=== PATIENT | male | born 1970 | race American Indian/Alaskan Native ===

== ENCOUNTER 2018-04-05 18:22 | Emergency (ER) | payer MEDICARE ==
[2018-04-05 18:29] VITALS: BP 133/87
[2018-04-05] MEDS ORDERED: NORCO 5/325 PO STA (20:54)
--- NOTE | 2018-04-05 21:55 | XRay Report ---
FINAL REPORT EXAM: XR ELBOW 3+V LT HISTORY: fall on ground and hit elbow TECHNIQUE: Three views of the left elbow PRIORS: None. FINDINGS: The bones are normally aligned and mineralized. The joint spaces are well-preserved. There is no evid ence of acute fracture. There is an olecranon spur. There is osteophyte formation of the coronoid pro cess. IMPRESSION: No evidence of acute fracture or subluxation.
--- NOTE | 2018-04-05 22:34 | Emergency Department Report ---
Upper Extremity - HPI Chief Complaint: Fall Stated Complaint: FELL AND HIT (L) ELBOW Time Seen by Provider: 04/05/18 20:38 Upper Extremity: Left Elbow Occurred When: 2 Days Mechanism: Fall (and hit floor with elbow) Severity: mild Symptoms: Yes Pain with Movement, Yes Swelling, No Limited Range of Movement, No Numbness, No Weakness, No Bruising/Ecchymosis, No Laceration or Abrasion ED Review of Systems ROS: Stated complaint: FELL AND HIT (L) ELBOW Other details as noted in HPI Constitutional: denies: chills, fever Eyes: denies: eye pain, eye discharge, vision change ENT: denies: ear pain, throat pain Respiratory: denies: cough, shortness of breath, wheezing Cardiovascular: denies: chest pain, palpitations Endocrine: no symptoms reported Gastrointestinal: denies: abdominal pain, nausea, diarrhea Genitourinary: denies: urgency, dysuria Musculoskeletal: denies: back pain, joint swelling, arthralgia Skin: denies: rash, lesions Neurological: denies: headache, weakness, paresthesias Psychiatric: denies: anxiety, depression Hematological/Lymphatic: denies: easy bleeding, easy bruising ED Past Medical Hx - Past Medical History Previous Medical History?: Yes Hx GERD: Yes Additional medical history: Brugada syndrome. MS - Surgical History Past Surgical History?: Yes Hx Internal Defibrillator: Yes (placed 01/11/15) Additional Surgical History: Cardiac cath 12/29/2014 normal coronary arteries - Social History Smoking Status: Never Smoker Substance Use Type: None - Medications Home Medications: Home Medications Medication Instructions Recorded Confirmed Last Taken Type Gabapentin [Neurontin] 800 mg PO Q8H 12/29/14 12/29/14 12/28/14 History Indomethacin 50 mg PO Q8H 12/29/14 12/29/14 12/28/14 History Omeprazole [PriLOSEC] 10 mg PO QDAY 12/29/14 12/29/14 09/16/15 History traZODone [Desyrel] 50 mg PO QHS 12/29/14 12/29/14 12/28/14 History Ibuprofen [Motrin 800 MG tab] 800 mg PO Q8HR PRN #30 tablet 01/18/15 Unknown Rx Ketorolac [Toradol] 10 mg PO Q6H PRN #20 tablet 04/05/18 Unknown Rx Upper Extremity Exam - Exam General: Vital signs noted. No distress. Alert and acting appropriately. Head and Torso: No HEENT Abnormality, No Neck Tenderness, No Chest/Lungs Abnormality, No Abdominal Tenderness, No Back Tenderness Shoulder Exam: Yes Normal Range of Motion in Shoulder, No Shoulder Tenderness, No Clavicle Tenderness, No Shoulder Deformity, No AC Joint Tenderness Arm Exam: No Arm/Humerus Tenderness, No Arm Deformity Elbow: Yes Elbow Tenderness, No Normal Range of Motion in Elbow, No Elbow Deformity Forearm: No Forearm Tenderness, No Forearm Deformity, No Pain with Pronation, No Pain with Supination Wrist: Yes Normal ROM in Wrist, No Wrist Tenderness, No Wrist Deformity, No Snuffbox Tenderness, No Pain with Axial Thumb Compression Hand: Yes Normal ROM in Digit(s), No Hand Tenderness, No Hand Deformity, No Digit Tenderness, No Digit(s) Deformity, No Tendon Dysfunction CMS Exam: No Broken Skin, No Normal Distal Pulses, No Normal Capillary Refill, N o Normal Distal Sensation ED Course Vital Signs 04/05/18 18:27 Temperature 97.8 F Pulse Rate 88 Respiratory 16 Rate Blood Pressure 133/87 O2 Sat by Pulse 97 Oximetry Critical care attestation.: If time is entered above; I have spent that time in minutes in the direct care of this critically ill patient, excluding procedure time. ED Disposition Clinical Impression: Contusion Disposition: DC-01 TO HOME OR SELFCARE Is pt being admited?: No Does the pt Need Aspirin: No Condition: Stable Instructions: Elbow Bursitis (ED), Arthralgia (ED) Prescriptions: Ketorolac [Toradol] 10 mg PO Q6H PRN #20 tablet PRN Reason: Pain Referrals: PRIMARY CARE [Primary Care Provider] - 3-5 Days [facility] [Provider Group] - 3-5 Days
== END 2018-04-05 22:38 | disposition home or self-care (01) ==
LOC: ED 18:22
DX: S50.02XA Contusion of left elbow, initial encounter (principal); K21.9 Gastro-esophageal reflux disease without esophagitis; W18.30XA Fall on same level, unspecified, initial encounter; Y93.89 Activity, other specified; Y92.89 Other specified places as the place of occurrence of the external cause; Y99.8 Other external cause status

== ENCOUNTER 2021-04-08 20:13 | Emergency (ER) | payer MEDICARE ==
[2021-04-08] MEDS ORDERED: SULFAMETHOXAZOLE/TRIMETHOPRIM 800/160MG DS TAB PO ONE (20:44)
[2021-04-08] MEDS ORDERED: HYDROcodone/ACETAMINOPHEN 5-325 MG TAB PO ONE (20:44)
[2021-04-08] MEDS ORDERED: TETANUS,DIPH,PERTUSS(ACELL) VACCINE 0.5 ML SYRINGE IM ONE (20:44)
[2021-04-08] MEDS ORDERED: IBUPROFEN 600 MG TAB PO ONE (20:44)
[2021-04-08] MEDS ORDERED: ONDANSETRON 4 MG ODT TAB PO ONE (20:45)
--- NOTE | 2021-04-08 21:30 | Emergency Department Report ---
ED General Adult HPI - General Chief complaint: Wound/Laceration Stated complaint: LEG INFECTION Source: patient Mode of arrival: Ambulatory Limitations: No Limitations - History of Present Illness Initial comments: Patient is a 51-year-old -Lithuanian male with a history of GERD and Brugada syndrome who presents to the ED with complaint of acute onset persistent severe bilateral lower extremity pain due to ulcerated abrasion wounds that he suffered about a month ago after falling over a wall that caused significant abrasion on anterior lower legs. Patient stated that he did not go to the hospital to be evaluated as he chose to treated at home by himself. Patient stated that in the last 2 weeks the pain in the ulceration has worsened and now has multiple ulcerations and scabbing that are painful. Patient states that he is not up-to-date with his tetanus vaccinations. Patient denies fever, chills, dizziness, syncope, seizures, nausea and vomiting, numbness and tingling or weakness of lower extremities bilaterally or back pain and hip pain. Patient also denies head or neck injuries. MD Complaint: Bilateral lower extremity ulcerated wounds with pain -: Sudden, week(s) (4) Location: lower extremity (Bilateral lower extremity) Radiation: non-radiation Severity scale (0 -10): 6 Quality: aching, sharp Consistency: constant Improves with: none Worsens with: movement Associated Symptoms: denies other symptoms. denies: confusion, chest pain, cough, fever/chills, headaches, loss of appetite, malaise, rash, seizure, shortness of breath, syncope, weakness, other Treatments Prior to Arrival: none - Related Data Home Medications Medication Instructions Recorded Confirmed Last Taken Gabapentin [Neurontin] 800 mg PO Q8H 12/29/14 12/29/14 12/28/14 Indomethacin 50 mg PO Q8H 12/29/14 12/29/14 12/28/14 Omeprazole [PriLOSEC] 10 mg PO QDAY 12/29/14 12/29/14 09/16/15 traZODone [Desyrel] 50 mg PO QHS 12/29/14 12/29/14 12/28/14 Previous Rx's Medication Instructions Recorded Last Taken Type Ketorolac [Toradol] 10 mg PO Q6H PRN #20 tablet 04/05/18 Unknown Rx Ibuprofen [Motrin 800 MG tab] 800 mg PO Q8HR PRN #30 tablet 04/08/21 Unknown Rx Mupirocin [Bactroban 2%] 1 applic TP BID #2 tube 04/08/21 Unknown Rx Sulfamethoxazole/Trimethoprim 1 each PO Q12H #20 04/08/21 Unknown Rx [Bactrim DS TAB] Allergies Allergy/AdvReac Type Severity Reaction Status Date / Time No Known Allergies Allergy Verified 12/29/14 07:16 ED Review of Systems ROS: Stated complaint: LEG INFECTION Other details as noted in HPI Constitutional: denies: chills, fever Eyes: denies: eye pain, eye discharge, vision change ENT: denies: ear pain, throat pain Respiratory: denies: cough, shortness of breath, wheezing Cardiovascular: denies: chest pain, palpitations Endocrine: no symptoms reported Gastrointestinal: denies: abdominal pain, nausea, diarrhea Genitourinary: denies: urgency, dysuria Musculoskeletal: arthralgia (Bilateral lower extremity ulcerated scabbed abrasion wounds with pain). denies: back pain, joint swelling Skin: other (Anterior lower leg pain due to scabbed ulcerated wounds). denies: rash, lesions Neurological: denies: headache, weakness, paresthesias Psychiatric: denies: anxiety, depression Hematological/Lymphatic: denies: easy bleeding, easy bruising ED Past Medical Hx - Past Medical History Previous Medical History?: Yes Hx GERD: Yes Additional medical history: Brugada syndrome. MS - Surgical History Past Surgical History?: Yes Hx Internal Defibrillator: Yes (placed 01/11/15) Additional Surgical History: Cardiac cath 12/29/2014 normal coronary arteries - Social History Smoking Status: Never Smoker Substance Use Type: None - Medications Home Medications: Home Medications Medication Instructions Recorded Confirmed Last Taken Type Gabapentin [Neurontin] 800 mg PO Q8H 12/29/14 12/29/14 12/28/14 History Indomethacin 50 mg PO Q8H 12/29/14 12/29/14 12/28/14 History Omeprazole [PriLOSEC] 10 mg PO QDAY 12/29/14 12/29/14 09/16/15 History traZODone [Desyrel] 50 mg PO QHS 12/29/14 12/29/14 12/28/14 History Ketorolac [Toradol] 10 mg PO Q6H PRN #20 tablet 04/05/18 Unknown Rx Ibuprofen [Motrin 800 MG tab] 800 mg PO Q8HR PRN #30 tablet 04/08/21 Unknown Rx Mupirocin [Bactroban 2%] 1 applic TP BID #2 tube 04/08/21 Unknown Rx Sulfamethoxazole/Trimethoprim 1 each PO Q12H #20 04/08/21 Unknown Rx [Bactrim DS TAB] ED Physical Exam - General Limitations: No Limitations General appearance: alert, in no apparent distress - Head Head exam: Present: atraumatic, normocephalic, normal inspection - Eye Eye exam: Present: normal appearance, PERRL, EOMI Pupils: Present: normal accommodation - ENT ENT exam: Present: normal exam, normal orophraynx, mucous membranes moist, TM's normal bilaterally, normal external ear exam - Neck Neck exam: Present: normal inspection, full ROM - Respiratory Respiratory exam: Present: normal lung sounds bilaterally. Absent: respiratory distress, wheezes, rhonchi, chest wall tenderness, accessory muscle use, decreased breath sounds - Cardiovascular Cardiovascular Exam: Present: regular rate, normal rhythm, normal heart sounds. Absent: systolic murmur, diastolic murmur, rubs, gallop - GI/Abdominal GI/Abdominal exam: Present: soft, normal bowel sounds. Absent: distended, tenderness, guarding, rigid, hyperactive bowel sounds, organomegaly - Extremities Exam Extremities exam: Present: normal inspection, full ROM, tenderness (Palpable anterior bilateral lower leg tenderness due to ulcerated scabbed abrasion wounds with purulent discharge), normal capillary refill - Back Exam Back exam: Present: normal inspection, full ROM. Absent: tenderness, CVA tenderness (L), muscle spasm, paraspinal tenderness, vertebral tenderness, rash noted - Neurological Exam Neurological exam: Present: alert, oriented X3 - Psychiatric Psychiatric exam: Present: normal affect, normal mood - Skin Skin exam: Present: warm, dry, intact, normal color, abrasion (Scabbed, ulcerated wounds with mild purulent discharge on bilateral anterior lower legs with localized tenderness). Absent: rash ED Course Vital Signs 04/08/21 04/08/21 04/08/21 20:29 20:55 20:58 Temperature 98.3 F Pulse Rate 98 H Respiratory 18 14 14 Rate Blood Pressure 145/104 O2 Sat by Pulse 98 Oximetry ED Medical Decision Making - Medical Decision Making This is a 51-year-old -Lithuanian male with a history of GERD and Brugada syndrome who presents to the ED with complaint of acute onset persistent severe bilateral lower extremity pain due to ulcerated abrasion wounds that he suffered about a month ago after falling over a wall that caused significant abrasion on anterior lower legs. Patient stated that he did not go to the hospital to be evaluated as he chose to treated at home by himself. Patient stated that in the last 2 weeks the pain in the ulceration has worsened and now has multiple ulcerations and scabbing that are painful. Patient states that he is not up-to-date with his tetanus vaccinations. In the ED, patient is alert and oriented x3 and is not in distress. Patient was treated for pain in the ED and also received booster tetanus vaccinations. The wound was dressed appropriately and the patient will discharge home on antibiotics and pain medications. Patient was referred to the wound clinic for follow-up and advised to contact the wound clinic in the next 2 to 3 days for follow-up and reevaluation. Patient was advised return to the ED immediately if symptoms get worse. - Differential Diagnosis Ulcerated wound; cellulitis; chronic ulcer; leg contusion Critical care attestation.: If time is entered above; I have spent that time in minutes in the direct care of this critically ill patient, excluding procedure time. ED Disposition Clinical Impression: Cellulitis of both lower extremities Traumatic open wound of lower leg with infection Qualifiers: Encounter type: initial encounter Laterality: unspecified laterality Qualified Code(s): S81.809A - Unspecified open wound, unspecified lower leg, initial encounter; L08.9 - Local infection of the skin and subcutaneous tissue, unspecified Disposition: 01 HOME / SELF CARE / HOMELESS Is pt being admited?: No Does the pt Need Aspirin: No Condition: Stable Instructions: Cellulitis, Adult, Hogl-vs-Gjsu, Wound Care, Adult Additional Instructions: Take medication with food, drink plenty of fluids and follow-up with your primary care physician in 7 to 10 days or the wound clinic for reevaluation. Return to the ED immediately if symptoms get worse. Prescriptions: Sulfamethoxazole/Trimethoprim [Bactrim DS TAB] 1 each PO Q12H #20 Mupirocin [Bactroban 2%] 1 applic TP BID #2 tube Ibuprofen [Motrin 800 MG tab] 800 mg PO Q8HR PRN #30 tablet PRN Reason: Pain Referrals: [facility] [Outside] - 3-5 Days [facility] [Provider Group] - 3-5 Days Time of Disposition: 21:35 Print Language: FINNISH
[2021-04-08 22:44] VITALS: BP 143/84
== END 2021-04-08 22:45 | disposition home or self-care (01) ==
LOC: ED 20:13
DX: L03.116 Cellulitis of left lower limb (principal); L03.115 Cellulitis of right lower limb; S81.809A Unspecified open wound, unspecified lower leg, initial encounter; L08.9 Local infection of the skin and subcutaneous tissue, unspecified; X58.XXXA Exposure to other specified factors, initial encounter; Y93.89 Activity, other specified; Y92.89 Other specified places as the place of occurrence of the external cause; Y99.8 Other external cause status
CPT/HCPCS: 90471; 90715; 99282; 99283; J3490; Q0162

== ENCOUNTER 2021-04-11 00:01 | Observation (INO) | payer MEDICARE ==
--- NOTE | 2021-04-11 01:45 | Emergency Department Report ---
ED Chest Pain HPI - General Chief Complaint: Chest Pain Stated Complaint: CHEST PAIN Time Seen by Provider: 04/11/21 01:23 Source: patient Mode of arrival: Ambulatory Limitations: No Limitations - History of Present Illness Initial Comments: Patient is 51 years old male with history of Brugada syndrome status post defibrillator approximately 7 years ago. Patient presented to the ER complaining of left-sided chest pain that started yesterday. Patient stated that he also feel his heart is racing and he has been checking his pulse and this consistently more than 110. Patient denies any syncopal episodes or passing out. He denies any shortness of breath, fever or chills. Patient stated that he has been followed by Dr. Mckeon at [facility]. Complaint: chest pain -: Last night Onset: during exertion Pain Location: left chest Pain Radiation: LUE Severity: moderate Severity scale (0 -10): 4 Quality: tightness - Related Data Home Medications Medication Instructions Recorded Confirmed Last Taken Gabapentin [Neurontin] 800 mg PO Q8H 12/29/14 04/11/21 04/09/21 Indomethacin 50 mg PO Q8H 12/29/14 04/11/21 04/09/21 Omeprazole [PriLOSEC] 10 mg PO QDAY 12/29/14 04/11/21 04/09/21 traZODone [Desyrel] 50 mg PO QHS 12/29/14 04/11/21 04/09/21 Previous Rx's Medication Instructions Recorded Last Taken Type Ketorolac [Toradol] 10 mg PO Q6H PRN #20 tablet 04/05/18 04/09/21 Rx Ibuprofen [Motrin 800 MG tab] 800 mg PO Q8HR PRN #30 tablet 04/08/21 04/09/21 Rx Mupirocin [Bactroban 2%] 1 applic TP BID #2 tube 04/08/21 04/09/21 Rx Sulfamethoxazole/Trimethoprim 1 each PO Q12H #20 04/08/21 04/09/21 Rx [Bactrim DS TAB] Allergies Allergy/AdvReac Type Severity Reaction Status Date / Time No Known Allergies Allergy Verified 12/29/14 07:16 Heart Score - HEART Score History: Moderately suspicious EKG: Non-specific Age: 45-65 Risk factors: 1-2 risk factors Troponin: < normal limit HEART Score: 4 - EKG Read Time Time EKG Completed: 00:07 EKG Read Time: 00:12 - Critical Actions Critical Actions: 4-6 pts:12-16.6% risk of adverse cardiac event. Should be admitted ED Review of Systems ROS: Stated complaint: CHEST PAIN Other details as noted in HPI Comment: All other systems reviewed and negative Constitutional: denies: chills, fever Respiratory: denies: cough, shortness of breath, SOB with exertion Cardiovascular: chest pain, palpitations Gastrointestinal: denies: abdominal pain, nausea, vomiting, diarrhea, constipation, hematemesis, melena, hematochezia Musculoskeletal: denies: back pain Neurological: denies: headache, weakness, numbness, paresthesias, confusion ED Past Medical Hx - Past Medical History Hx GERD: Yes Additional medical history: Brugada syndrome. MS - Surgical History Hx Internal Defibrillator: Yes (placed 01/11/15) Additional Surgical History: Cardiac cath 12/29/2014 normal coronary arteries - Social History Smoking Status: Never Smoker Substance Use Type: None - Medications Home Medications: Home Medications Medication Instructions Recorded Confirmed Last Taken Type Gabapentin [Neurontin] 800 mg PO Q8H 12/29/14 04/11/21 04/09/21 History Indomethacin 50 mg PO Q8H 12/29/14 04/11/21 04/09/21 History Omeprazole [PriLOSEC] 10 mg PO QDAY 12/29/14 04/11/21 04/09/21 History traZODone [Desyrel] 50 mg PO QHS 12/29/14 04/11/21 04/09/21 History Ketorolac [Toradol] 10 mg PO Q6H PRN #20 tablet 04/05/18 04/11/21 04/09/21 Rx Ibuprofen [Motrin 800 MG tab] 800 mg PO Q8HR PRN #30 tablet 04/08/21 04/11/21 04/09/21 Rx Mupirocin [Bactroban 2%] 1 applic TP BID #2 tube 04/08/21 04/11/21 04/09/21 Rx Sulfamethoxazole/Trimethoprim 1 each PO Q12H #20 04/08/21 04/11/21 04/09/21 Rx [Bactrim DS TAB] ED Physical Exam - General Limitations: No Limitations General appearance: alert, in no apparent distress - Head Head exam: Present: atraumatic, normocephalic, normal inspection - Eye Eye exam: Present: normal appearance - ENT ENT exam: Present: normal exam, normal orophraynx, mucous membranes moist - Neck Neck exam: Present: normal inspection, full ROM. Absent: tenderness, meningismus - Respiratory Respiratory exam: Present: normal lung sounds bilaterally - Cardiovascular Cardiovascular Exam: Present: tachycardia - GI/Abdominal GI/Abdominal exam: Present: soft, normal bowel sounds. Absent: distended, tenderness, guarding, rebound, rigid, organomegaly, mass, bruit, pulsatile mass - Extremities Exam Extremities exam: Present: normal inspection, full ROM, normal capillary refill. Absent: tenderness - Back Exam Back exam: Present: normal inspection, full ROM. Absent: CVA tenderness (R), CVA tenderness (L) - Neurological Exam Neurological exam: Present: alert, oriented X3, CN II-XII intact, normal gait, reflexes normal. Absent: motor sensory deficit - Psychiatric Psychiatric exam: Present: normal mood - Skin Skin exam: Present: warm, intact, normal color ED Course Vital Signs 04/11/21 04/11/21 04/11/21 00:12 00:15 12:59 Temperature 98.1 F Pulse Rate 113 H 88 Respiratory 17 16 Rate Blood Pressure 134/110 O2 Sat by Pulse 96 Oximetry 04/11/21 04/11/21 04/11/21 13:00 13:16 13:27 Temperature Pulse Rate 94 H 104 H Respiratory 13 20 17 Rate Blood Pressure 108/70 114/72 O2 Sat by Pulse 98 Oximetry 04/11/21 04/11/21 04/11/21 13:30 13:46 13:57 Temperature Pulse Rate 84 86 Respiratory 14 13 17 Rate Blood Pressure 119/76 119/76 O2 Sat by Pulse 96 96 Oximetry 04/11/21 04/11/21 04/11/21 14:00 14:16 14:30 Temperature Pulse Rate 87 82 87 Respiratory 16 13 26 H Rate Blood Pressure 113/67 113/67 99/74 O2 Sat by Pulse 98 97 97 Oximetry 04/11/21 04/11/21 04/11/21 14:46 14:58 17:25 Temperature 98.9 F Pulse Rate 81 81 Respiratory 16 13 Rate Blood Pressure 99/74 O2 Sat by Pulse 98 97 99 Oximetry CINDI score - Cindi Score Age > 65: (0) No Aspirin use within the Past 7 Days: (0) No 3 or more CAD Risk Factors: (0) No 2 or more Angina events in past 24 hrs: (0) No Known CAD with more than 50% Stenosis: (0) No Elevated Cardiac Markers: (0) No ST Deviation Greater than 0.5mm: (0) No CINDI Score: 0 ED Medical Decision Making - Lab Data Result diagrams: 04/11/21 12:41 04/11/21 12:41 - EKG Data -: EKG Interpreted by Me EKG shows normal: sinus rhythm Rate: tachycardia - EKG Data Interpretation: no acute changes - Radiology Data Radiology results: report reviewed - Medical Decision Making Patient is 51 years old male with history of Brugada syndrome status post defibrillator approximately 7 years ago. Patient presented to the ER complaining of left-sided chest pain that started yesterday. Patient stated that he also feel his heart is racing and he has been checking his pulse and this consistently more than 110. Patient denies any syncopal episodes or passing out. He denies any shortness of breath, fever or chills. EKG showed sinus tachycardia. Labs reviewed and is unremarkable except for el evated D-dimer however CTA chest is negative for acute finding. Patient given aspirin. I discussed the patient with Dr. Potts, he agreed to admit the patient to medical service for further management. Critical care attestation.: If time is entered above; I have spent that time in minutes in the direct care of this critically ill patient, excluding procedure time. ED Disposition Clinical Impression: Acute chest pain, Brugada syndrome Disposition: 02 SHORT TERM HOSPITAL Is pt being admited?: Yes Condition: Stable
[2021-04-11 02:31] LABS: Basophils % (Auto) 0.7 % (0.0-1.8); Eosinophils % (Auto) 0.5 % (0.0-4.3); Hemoglobin 15.5 gm/dl (11.8-15.2); Lymphocytes # (Auto) 1.9 K/mm3 (1.2-5.4); Lymphocytes % (Auto) 31.6 % (13.4-35.0); Mean Corpuscular HGB Conc 33 % (32-34); Mean Corpuscular Volume 92 fl (84-94); Monocytes # (Auto) 0.6 K/mm3 (0.0-0.8); Monocytes % (Auto) 9.1 % (0.0-7.3); Platelet Count 297 K/mm3 (140-440); Red Blood Count 5.12 M/mm3 (3.65-5.03); Red Cell Distribution Width 12.9 % (13.2-15.2)
[2021-04-11 02:43] LABS: INR 0.99 (0.87-1.13)
[2021-04-11 02:44] LABS: Partial Thromboplastin Time 35.2 Sec. (24.2-36.6)
[2021-04-11 02:57] LABS: BUN/Creatinine Ratio 15; Blood Urea Nitrogen 17 mg/dL (9-20); Calcium 8.8 mg/dL (8.4-10.2); Hemolysis Index 1
[2021-04-11 03:00] LABS: Alanine Aminotransferase 28 units/L (7-56); Albumin 3.9 g/dL (3.9-5)
--- NOTE | 2021-04-11 03:09 | XRay Report ---
CHEST 2 VIEWS INDICATION / CLINICAL INFORMATION: Chest Pain. COMPARISON: None available at the current time FINDINGS: SUPPORT DEVICES: None. HEART / MEDIASTINUM: Heart is normal size. Presternal defibrillator lead is present. LUNGS / PLEURA: No significant pulmonary or pleural abnormality. No pneumothorax. ADDITIONAL FINDINGS: No significant additional findings. IMPRESSION: 1. No acute findings. Signer Name: Keeley Jack MD Signed: 04/11/2021 3:05 AM Workstation Name: [id number]
[2021-04-11 03:36] LABS: Bilirubin,Direct < 0.2 mg/dL (0-0.2)
--- NOTE | 2021-04-11 04:36 | Cat Scan Report ---
CTA CHEST WITH CONTRAST INDICATION / CLINICAL INFORMATION: CHEST PAIN WITH ELEVATED D-DIMER. TECHNIQUE: Axial CT images were obtained through the chest after injection of 100 mL Omnipaque 350 IV contrast. 3 plane MIP and/or 3D reconstructions were produced. All CT scans at this location are per formed using CT dose reduction for ALARA by means of automated exposure control. COMPARISON: None available. FINDINGS: PULMONARY ARTERIES: No pulmonary emboli. THORACIC AORTA: No significant abnormality. HEART: No significant abnormality. CORONARY ARTERY CALCIFICATION: None. MEDIASTINUM / [place]NE: No significant abnormality. PLEURA: No pleural effusion. No pneumothorax. LUNGS: No acute air space or interstitial disease. ADDITIONAL FINDINGS: Presternal automatic defibrillator lead is present. UPPER ABDOMEN: No acute findings. SKELETAL STRUCTURES: No significant osseous abnormality. IMPRESSION: 1. No CT evidence for pulmonary embolism. 2. No acute findings. Signer Name: Keeley Jack MD Signed: 04/11/2021 4:32 AM Workstation Name: [id number]
[2021-04-11] MEDS ORDERED: ASPIRIN 81 MG TAB CHEW PO ONE (04:45)
[2021-04-11] MEDS ORDERED: ACETAMINOPHEN 325 MG TAB PO PRN ×2 (12:16)
[2021-04-11] MEDS ORDERED: HYDROcodone/ACETAMINOPHEN 5-325 MG TAB PO PRN (12:16)
[2021-04-11] MEDS ORDERED: ONDANSETRON 4 MG/2 ML INJ IV PRN (12:16)
[2021-04-11] MEDS ORDERED: traMADol 50 MG TAB PO PRN (12:16)
--- NOTE | 2021-04-11 12:23 | History and Physical Report ---
History of Present Illness Date of examination: 04/11/21 Date of admission: 04/11/21 Chief complaint: cp History of present illness: Patient is 51 years old male with history of Brugada syndrome status post defibrillator approximately 7 years ago. Patient presented to the ER complaining of left-sided chest pain that started yesterday. Patient stated that he also feel his heart is racing and he has been checking his pulse and this consistently more than 110. Patient denies any syncopal episodes or passing out. He denies any shortness of breath, fever or chills. Past History Past Medical History: other (Brugada syndrome) Past Surgical History: No surgical history Social history: no significant social history Family history: no significant family history Medications and Allergies Allergies Allergy/AdvReac Type Severity Reaction Status Date / Time No Known Allergies Allergy Verified 12/29/14 07:16 Home Medications Medication Instructions Recorded Confirmed Last Taken Type Gabapentin [Neurontin] 800 mg PO Q8H 12/29/14 12/29/14 12/28/14 History Indomethacin 50 mg PO Q8H 12/29/14 12/29/14 12/28/14 History Omeprazole [PriLOSEC] 10 mg PO QDAY 12/29/14 12/29/14 09/16/15 History traZODone [Desyrel] 50 mg PO QHS 12/29/14 12/29/14 12/28/14 History Ketorolac [Toradol] 10 mg PO Q6H PRN #20 tablet 04/05/18 Unknown Rx Ibuprofen [Motrin 800 MG tab] 800 mg PO Q8HR PRN #30 tablet 04/08/21 Unknown Rx Mupirocin [Bactroban 2%] 1 applic TP BID #2 tube 04/08/21 Unknown Rx Sulfamethoxazole/Trimethoprim 1 each PO Q12H #20 04/08/21 Unknown Rx [Bactrim DS TAB] Review of Systems All systems: negative Exam - Constitutional Vitals: Temp Pulse Resp BP Pulse Ox 98.1 F 113 H 17 134/110 96 04/11/21 00:15 04/11/21 00:12 04/11/21 00:12 04/11/21 00:12 04/11/21 00:12 General appearance: Present: no acute distress, well-nourished - EENT Eyes: Present: PERRL ENT: hearing intact, clear oral mucosa - Neck Neck: Present: supple, normal ROM - Respiratory Respiratory effort: normal Respiratory: bilateral: CTA - Cardiovascular Heart Sounds: Present: S1 & S2. Absent: rub, click - Extremities Extremities: pulses symmetrical, No edema Peripheral Pulses: within normal limits - Abdominal General gastrointestinal: Present: soft, non-tender, non-distended, normal bowel sounds Male genitourinary: Present: normal - Integumentary Integumentary: Present: clear, warm, dry - Musculoskeletal Musculoskeletal: gait normal, strength equal bilaterally - Psychiatric Psychiatric: appropriate mood/affect, intact judgment & insight - Neurologic Neurologic: CNII-XII intact, moves all extremities HEART Score - HEART Score EKG: Non-specific Age: 45-65 Risk factors: 1-2 risk factors Troponin: Troponin T < 0.010 ng/mL (0.00-0.029) 04/11/21 07:54 Troponin: < normal limit - Critical Actions Critical Actions: 4-6 pts:12-16.6% risk of adverse cardiac event. Should be admitted Results - Labs CBC & Chem 7: 04/11/21 01:54 04/11/21 01:54 Labs: Laboratory Last Values WBC 6.1 K/mm3 (4.5-11.0) 04/11/21 01:54 RBC 5.12 M/mm3 (3.65-5.03) H 04/11/21 01:54 Hgb 15.5 gm/dl (11.8-15.2) H 04/11/21 01:54 Hct 47.0 % (35.5-45.6) H 04/11/21 01:54 MCV 92 fl (84-94) 04/11/21 01:54 MCH 30 pg (28-32) 04/11/21 01:54 MCHC 33 % (32-34) 04/11/21 01:54 RDW 12.9 % (13.2-15.2) L 04/11/21 01:54 Plt Count 297 K/mm3 (140-440) 04/11/21 01:54 Lymph % (Auto) 31.6 % (13.4-35.0) 04/11/21 01:54 [facility] % (Auto) 9.1 % (0.0-7.3) H 04/11/21 01:54 Eos % (Auto) 0.5 % (0.0-4.3) 04/11/21 01:54 Baso % (Auto) 0.7 % (0.0-1.8) 04/11/21 01:54 Lymph # (Auto) 1.9 K/mm3 (1.2-5.4) 04/11/21 01:54 [facility] # (Auto) 0.6 K/mm3 (0.0-0.8) 04/11/21 01:54 Eos # (Auto) 0.0 K/mm3 (0.0-0.4) 04/11/21 01:54 Baso # (Auto) 0.0 K/mm3 (0.0-0.1) 04/11/21 01:54 Seg Neutrophils % 58.1 % (40.0-70.0) 04/11/21 01:54 Seg Neutrophils # 3.5 K/mm3 (1.8-7.7) 04/11/21 01:54 PT 14.2 Sec. (12.2-14.9) 04/11/21 01:54 INR 0.99 (0.87-1.13) 04/11/21 01:54 APTT 35.2 Sec. (24.2-36.6) 04/11/21 01:54 D-Dimer 582.66 ng/mlDDU (0-234) H 04/11/21 01:54 Sodium 139 mmol/L (137-145) 04/11/21 01:54 Potassium 3.8 mmol/L (3.6-5.0) 04/11/21 01:54 Chloride 104.2 mmol/L (98-107) 04/11/21 01:54 Carbon Dioxide 21 mmol/L (22-30) L 04/11/21 01:54 Anion Gap 18 mmol/L 04/11/21 01:54 BUN 17 mg/dL (9-20) 04/11/21 01:54 Creatinine 1.1 mg/dL (0.8-1.3) 04/11/21 01:54 Estimated GFR > 60 ml/min 04/11/21 01:54 BUN/Creatinine Ratio 15 % 04/11/21 01:54 Glucose 97 mg/dL (75-100) 04/11/21 01:54 Calcium 8.8 mg/dL (8.4-10.2) 04/11/21 01:54 Total Bilirubin 0.80 mg/dL (0.1-1.2) 04/11/21 01:54 Direct Bilirubin < 0.2 mg/dL (0-0.2) 04/11/21 01:54 Indirect Bilirubin 0.6 mg/dL 04/11/21 01:54 AST 22 units/L (5-40) 04/11/21 01:54 ALT 28 units/L (7-56) 04/11/21 01:54 Alkaline Phosphatase 110 units/L (35-129) 04/11/21 01:54 Troponin T < 0.010 ng/mL (0.00-0.029) 04/11/21 07:54 Total Protein 7.0 g/dL (6.3-8.2) 04/11/21 01:54 Albumin 3.9 g/dL (3.9-5) 04/11/21 01:54 Albumin/Globulin Ratio 1.3 % 04/11/21 01:54 Assessment and Plan Assessment and plan: Brugada syndrome Chest pain s/p AICD 04/11/2021. Patient will be admitted and placed on chest pain protocol. We will follow-up serial cardiac isoenzymes and EKG. Check echocardiogram and cardiology consultation pending
[2021-04-11 13:01] LABS: Basophils % (Auto) 0.4 % (0.0-1.8); Eosinophils % (Auto) 0.8 % (0.0-4.3); Hematocrit 42.9 % (35.5-45.6); Hemoglobin 14.4 gm/dl (11.8-15.2); Lymphocytes # (Auto) 1.5 K/mm3 (1.2-5.4); Lymphocytes % (Auto) 33.8 % (13.4-35.0); Mean Corpuscular HGB Conc 34 % (32-34); Mean Corpuscular Volume 91 fl (84-94); Monocytes # (Auto) 0.5 K/mm3 (0.0-0.8); Monocytes % (Auto) 12.2 % (0.0-7.3); Platelet Count 243 K/mm3 (140-440); Red Blood Count 4.73 M/mm3 (3.65-5.03); Red Cell Distribution Width 12.8 % (13.2-15.2)
[2021-04-11 13:13] LABS: BUN/Creatinine Ratio 20; Blood Urea Nitrogen 20 mg/dL (9-20); Calcium 8.5 mg/dL (8.4-10.2); Hemolysis Index 4
[2021-04-11] MEDS: MORPHINE 4 MG/1 ML INJ IV PRN (13:27)
--- NOTE | 2021-04-11 16:43 | Consultation ---
History of Present Illness Consult date: 04/11/21 Requesting physician: DAVID CRONIN Consult reason: chest pain History of present illness: Patient is a 51-year-old male with a past medical history of Brugada syndrome s/p P ICD, hypertension, cocaine use who presented to the ED with a complaint of elevated heart rate and chest pain x3 days prior to admission. Patient states that over the last several days his heart rate has been trending 110 -120s and has not decreased. He states his blood pressure has been controlled and he is just concerned as to why it has been so elevated. Furthermore, the patient reports that he also has chest pain is a left-sided intermittent dullness that is sometimes worse with exertion. Patient also admits that he has been noncompliant with any of his medications for over a year and admits to recent substance use using cocaine. At time of interview patient reports that he is chest pain-free. He also reports that he has not felt his device go off. Furthermore he denies nausea, vomiting, diaphoresis, or shortness of breath. Patient follows with Dr. David Arroyo at [place]. Cardiology is consulted for chest p ain. Past History Past Medical History: other (Brugada syndrome) Past Surgical History: No surgical history Social history: smoking, other (Cocaine use) Family history: no significant family history Medications and Allergies Allergies Allergy/AdvReac Type Severity Reaction Status Date / Time No Known Allergies Allergy Verified 12/29/14 07:16 Home Medications Medication Instructions Recorded Confirmed Last Taken Type Gabapentin [Neurontin] 800 mg PO Q8H 12/29/14 12/29/14 12/28/14 History Indomethacin 50 mg PO Q8H 12/29/14 12/29/14 12/28/14 History Omeprazole [PriLOSEC] 10 mg PO QDAY 12/29/14 12/29/14 09/16/15 History traZODone [Desyrel] 50 mg PO QHS 12/29/14 12/29/14 12/28/14 History Ketorolac [Toradol] 10 mg PO Q6H PRN #20 tablet 04/05/18 Unknown Rx Ibuprofen [Motrin 800 MG tab] 800 mg PO Q8HR PRN #30 tablet 04/08/21 Unknown Rx Mupirocin [Bactroban 2%] 1 applic TP BID #2 tube 04/08/21 Unknown Rx Sulfamethoxazole/Trimethoprim 1 each PO Q12H #20 04/08/21 Unknown Rx [Bactrim DS TAB] Active Meds: Active Medications Acetaminophen (Acetaminophen 325 Mg Tab) 650 mg PO Q4H PRN PRN Reason: Pain MILD(1-3)/Fever >100.5/MONROY Hydrocodone Bitart/Acetaminophen (Hydrocodone/Acetaminophen 5-325 Mg Tab) 2 each PO Q6H PRN PRN Reason: Pain, Moderate (4-6) Enoxaparin Sodium (Enoxaparin 40 Mg/0.4 Ml Inj) 40 mg SUB-Q QDAY KHOA; Protocol Morphine Sulfate (Morphine 4 Mg/1 Ml Inj) 2 mg IV Q4H PRN PRN Reason: Pain , Severe (7-10) Last Admin: 04/11/21 13:27 Dose: 2 mg Ondansetron HCl (Ondansetron 4 Mg/2 Ml Inj) 4 mg IV Q8H PRN PRN Reason: Nausea And Vomiting Sodium Chloride (Sodium Chloride 0.9% 10 Ml Flush Syringe) 10 ml IV BID KHOA Sodium Chloride (Sodium Chloride 0.9% 10 Ml Flush Syringe) 10 ml IV PRN PRN PRN Reason: LINE FLUSH Tramadol HCl (Tramadol 50 Mg Tab) 50 mg PO Q6H PRN PRN Reason: Pain, Moderate (4-6) Review of Systems Constitutional: no weight loss, no weight gain Ears, nose, mouth and throat: no decreased hearing, no nose pain, no nasal discharge Cardiovascular: chest pain, rapid/irregular heart beat, no palpitations, no shortness of breath, no dyspnea on exertion, no high blood pressure Respiratory: no cough with sputum, no excessive sputum, no shortness of breath, no dyspnea on exertion Gastrointestinal: no abdominal pain, no nausea, no vomiting, no diarrhea Musculoskeletal: no neck stiffness, no neck pain, no shooting arm pain, no arm numbness/tingling Integumentary: no rash, no pruritis, no redness Neurological: no head injury, no transient paralysis, no paralysis Psychiatric: no anxiety, no memory loss Endocrine: no cold intolerance, no heat intolerance Hematologic/Lymphatic: no easy bruising, no easy bleeding Physical Examination Vital Signs Last Vital Signs Temp 98.9 F 04/11/21 14:58 Pulse 81 04/11/21 14:46 Resp 13 04/11/21 14:58 BP 99/74 04/11/21 14:46 Pulse Ox 97 04/11/21 14:58 General appearance: no acute distress HEENT: Positive: PERRL Neck: Positive: trachea midline Cardiac: Positive: Reg Rate and Rhythm Lungs: Positive: Normal Breath Sounds Neuro: Positive: Grossly Intact Abdomen: Positive: Soft, Active Bowel Sounds Skin: Positive: Other (Healing wounds on bilateral lower extremities) Extremities: Present: normal. Absent: edema Results 04/11/21 12:41 04/11/21 12:41 Cardiac Enzymes 04/11/21 Range/Units 01:54 AST 22 (5-40) units/L Coagulation 04/11/21 Range/Units 01:54 PT 14.2 (12.2-14.9) Sec. INR 0.99 (0.87-1.13) APTT 35.2 (24.2-36.6) Sec. CBC 04/11/21 04/11/21 Range/Units 01:54 12:41 WBC 6.1 4.5 (4.5-11.0) K/mm3 RBC 5.12 H 4.73 (3.65-5.03) M/mm3 Hgb 15.5 H 14.4 (11.8-15.2) gm/dl Hct 47.0 H 42.9 (35.5-45.6) % Plt Count 297 243 (140-440) K/mm3 Lymph # (Auto) 1.9 1.5 (1.2-5.4) K/mm3 [place] # (Auto) 0.6 0.5 (0.0-0.8) K/mm3 Eos # (Auto) 0.0 0.0 (0.0-0.4) K/mm3 Baso # (Auto) 0.0 0.0 (0.0-0.1) K/mm3 Comprehensive Metabolic Panel 04/11/21 04/11/21 04/11/21 Range/Units 01:54 01:54 12:41 Sodium 139 136 L (137-145) mmol/L Potassium 3.8 4.0 (3.6-5.0) mmol/L Chloride 104.2 102.3 (98-107) mmol/L Carbon Dioxide 21 L 24 (22-30) mmol/L BUN 17 20 (9-20) mg/dL Creatinine 1.1 1.0 (0.8-1.3) mg/dL Glucose 97 113 H (75-100) mg/dL Calcium 8.8 8.5 (8.4-10.2) mg/dL Direct Bilirubin < 0.2 (0-0.2) mg/dL Indirect Bilirubin 0.6 mg/dL AST 22 (5-40) units/L ALT 28 (7-56) units/L Alkaline Phosphatase 110 (35-129) units/L Total Protein 7.0 (6.3-8.2) g/dL Albumin 3.9 (3.9-5) g/dL - Imaging and Cardiology Echo: pending, report reviewed Cardiac cath: report reviewed EKG interpretations - Telemetry EKG Rhythm: Sinus Tachycardia - EKG Sinus rhythms and dysrhythmias: sinus tachycardia Assessment and Plan Patient is a 51-year-old male with a past medical history of Brugada syndrome s/p P ICD, hypertension, polysubstance abuse who presented to the ED with a complaint of elevated heart rate and chest pain x3 days prior to admission. Chest Pain Brugada syndrome S/p ICD([employer]) Hypertension Cocaine use Medical noncompliance Lexiscan MPI stress test 04/2020-this is a probably normal myocardial SPECT perfusion study without evidence of ischemia or infarction. Systolic Function: The estimated left ventricular ejection fraction is 60-65%. Echo 04/2020- left ventricular ejection fraction is 55-60%. Trace aortic valve insufficiency. Mildly dilated aortic root at the level of the Sinuses of Valsalva. The estimated right ventricular systolic pressure is normal at 15.3 mmHg. Trace mitral valve regurgitation. Cardiac cath 12/29/2014-normal coronary anatomy with normal size left ventricle contractility Plan: EKG shows sinus tach 102 no acute ischemic changes. Troponins negative x2 patient currently chest pain-free. AMI ruled out Patient currently sinus 80s on the monitor Echo pending Patient for the stress test in the a.m. n.p.o. after midnight Due to cocaine use no beta-blockers Recommend urine drug screen panel Due to soft blood pressure will hold TED/ARB or other BP medication Contacted [employer] to have ICD device interrogated Patient seen in conjunction with Dr. Rubin who agrees with this plan of care - Patient Problems (1) Cocaine abuse Current Visit: Yes Status: Acute (2) Acute chest pain Current Visit: Yes Status: Acute (3) Brugada syndrome Current Visit: Yes Status: Acute (4) Chest pain Current Visit: No Status: Acute
[2021-04-11] MEDS ORDERED: NON-FORMULARY EACH (Gabapentin [Neurontin] 800 MG Tablet) PO SCH (17:30)
[2021-04-11] MEDS ORDERED: traZODone 50 MG TAB PO SCH (22:00)
[2021-04-11] MEDS: GABAPENTIN 400 MG CAP PO SCH ×2 (22:02)
[2021-04-12] MEDS: GABAPENTIN 400 MG CAP PO SCH ×2 (06:03→14:49)
[2021-04-12] MEDS ORDERED: REGADENOSON 0.4 MG/5 ML INJ IV ONE (06:45)
[2021-04-12 07:20] LABS: Basophils # (Auto) 0.1 K/mm3 (0.0-0.1); Basophils % (Auto) 1.3 % (0.0-1.8); Hemoglobin 13.8 gm/dl (11.8-15.2); Lymphocytes # (Auto) 1.9 K/mm3 (1.2-5.4); Lymphocytes % (Auto) 39.5 % (13.4-35.0); Mean Corpuscular HGB Conc 32 % (32-34); Mean Corpuscular Volume 91 fl (84-94); Monocytes # (Auto) 0.5 K/mm3 (0.0-0.8); Monocytes % (Auto) 9.7 % (0.0-7.3); Platelet Count 235 K/mm3 (140-440); Red Blood Count 4.72 M/mm3 (3.65-5.03); Red Cell Distribution Width 13.2 % (13.2-15.2)
[2021-04-12 07:40] LABS: BUN/Creatinine Ratio 21; Blood Urea Nitrogen 19 mg/dL (9-20); Calcium 8.3 mg/dL (8.4-10.2); Hemolysis Index 1
--- NOTE | 2021-04-12 08:31 | Discharge Summary ---
Providers - Providers Date of Admission: 04/11/21 12:16 Date of discharge: 04/12/21 Attending physician: DAVID CRONIN 04/11/21 Consult to Cardiac Rehabilitation [CONS] Routine Reason For Exam: Phase I 04/11/21 04:54 Consult to Physician [CONS] Stat Comment: Consulting Provider: TRE BUTTS Physician Instructions: Reason For Exam: Chest pain, history of Brugada syndrome 04/11/21 12:16 Consult to Cardiology [CONS] Routine Consulting Provider: FRANCISCO JAVIER BUTTS Reason For Exam: cp Primary care physician: MAGENTO [employer] DEVELOPER Hospitalization Reason for admission: Chest pain Condition: Stable Hospital course: 51-year-old male with past medical history of Brugada syndrome s/p ICD, hypertension and cocaine use presented through the emergency department with complaints of palpitations, tachycardia and chest pain for 3 days prior to admission. Patient reportedly noted that his heart rate was [id number] and persisted. The patient also reported chest pain left side described as intermittent dullness that worsened with exertion. Patient also reported noncompliance of his medications for over a year and also admitted to recent substance use with cocaine. The patient was admitted with diagnosis of chest pain, palpitations and cocaine use. Patient was evaluated by cardiology in consultation who recommended echocardiogram and stress test. Patient is to undergo these tests and if found to be negative will likely discharge home later this afternoon. Dedicated discharge time 32 minutes Disposition: HOME / SELF CARE / HOMELESS Final Discharge Diagnosis (Prints w/discharge instructions): Cocaine use, chest pain, palpitation Core Measure Documentation - Palliative Care Palliative Care/ Comfort Measures: Not Applicable - Core Measures Any of the following diagnoses?: none Exam - Constitutional Vitals: Temp Pulse Resp BP Pulse Ox 98.2 F 89 18 102/71 95 04/12/21 03:50 04/12/21 03:50 04/12/21 03:50 04/12/21 03:50 04/12/21 03:50 General appearance: Present: no acute distress, well-nourished - EENT Eyes: Present: PERRL ENT: hearing intact, clear oral mucosa - Neck Neck: Present: supple, normal ROM - Respiratory Respiratory effort: normal Respiratory: bilateral: CTA - Cardiovascular Heart Sounds: Present: S1 & S2. Absent: rub, click - Extremities Extremities: pulses symmetrical, No edema Peripheral Pulses: within normal limits - Abdominal General gastrointestinal: Present: soft, non-tender, non-distended, normal bowel sounds Male genitourinary: Present: normal - Integumentary Integumentary: Present: clear, warm, dry - Musculoskeletal Musculoskeletal: gait normal, strength equal bilaterally - Psychiatric Psychiatric: appropriate mood/affect, intact judgment & insight - Neurologic Neurologic: CNII-XII intact, moves all extremities Plan Activity: advance as tolerated Weight Bearing Status: Weight Bear as Tolerated Diet: regular Follow up with: PRIMARY CAREMD [Primary Care Provider] - 7 Days
[2021-04-12] MEDS ORDERED: ENOXAPARIN 40 MG/0.4 ML INJ SUB-Q SCH (10:00)
--- NOTE | 2021-04-12 11:41 | Progress Note ---
Assessment and Plan Patient is a 51-year-old male with a past medical history of Brugada syndrome s/p P ICD, hypertension, polysubstance abuse who presented to the ED with a complaint of elevated heart rate and chest pain x3 days prior to admission. Chest Pain Brugada syndrome S/p ICD([employer]) Hypertension Cocaine use Medical noncompliance Echo 04/11/2021-EF 50 to 55%. Left ventricular diastolic function is normal. Right ventricular systolic function is normal. No pericardial effusion Lexiscan MPI stress test 04/12/2021-negative for signs of ischemia Lexiscan MPI stress test 04/2020-this is a probably normal myocardial SPECT perfusion study without evidence of ischemia or infarction. Systolic Function: The estimated left ventricular ejection fraction is 60-65%. Echo 04/2020- left ventricular ejection fraction is 55-60%. Trace aortic valve insufficiency. Mildly dilated aortic root at the level of the Sinuses of Valsalva. The estimated right ventricular systolic pressure is normal at 15.3 mmHg. Trace mitral valve regurgitation. Cardiac cath 12/29/2014-normal coronary anatomy with normal size left ventricle contractility Plan: Patient currently sinus 80s on the monitor Due to cocaine use no beta-blockers Recommend urine drug screen panel Due to soft blood pressure will hold TED/ARB or other BP medication Patient had normal echo, normal stress test this a.m, and normal device interrogation Discussed with patient's importance of stopping cocaine use and the cardiac risk associated with cocaine Cardiac status stable for discharge Upon discharge patient should follow-up with her primary edge inker uppers in 1 to 2 weeks Patient seen in conjunction with Dr. Rubin who agrees with this plan of care - Patient Problems (1) Cocaine abuse Current Visit: Yes Status: Acute (2) Acute chest pain Current Visit: Yes Status: Acute (3) Brugada syndrome Current Visit: Yes Status: Acute (4) Chest pain Current Visit: No Status: Acute Subjective Date of service: 04/12/21 Principal diagnosis: chest pain, tachycardia, cocaine use Interval history: Patient resting in bed in no acute distress Objective Vital Signs Temp Pulse Resp BP BP Pulse Ox 04/12/21 08:31 137/85 04/12/21 08:30 130/79 04/12/21 08:29 133/87 04/12/21 08:28 124/83 04/12/21 08:01 119/83 04/12/21 03:50 98.2 F 89 18 102/71 95 04/12/21 00:11 98.3 F 105 H 19 119/85 97 04/11/21 22:00 99 04/11/21 20:07 98.3 F 90 18 119/80 97 04/11/21 20:00 98.3 F 90 18 119/80 97 04/11/21 17:25 81 99 04/11/21 17:17 98.1 F 83 18 126/68 98 04/11/21 16:20 82 16 118/70 99 04/11/21 16:10 77 11 L 118/70 99 04/11/21 16:00 78 14 118/70 98 04/11/21 15:50 70 12 92/60 98 04/11/21 15:40 85 22 92/60 98 04/11/21 15:30 86 12 92/60 99 04/11/21 15:20 86 16 99/62 98 04/11/21 15:10 99 H 16 99/62 98 04/11/21 15:00 88 19 99/62 97 04/11/21 14:58 98.9 F 13 97 04/11/21 14:50 84 15 99/74 98 04/11/21 14:46 81 16 99/74 98 04/11/21 14:40 91 H 18 99/74 98 04/11/21 14:30 93 H 16 113/67 97 04/11/21 14:20 82 13 113/67 97 04/11/21 14:16 82 13 113/67 97 04/11/21 14:10 81 14 113/67 96 04/11/21 14:00 87 14 119/76 97 04/11/21 13:57 17 04/11/21 13:50 85 14 119/76 97 04/11/21 13:46 86 13 119/76 96 04/11/21 13:40 84 13 119/76 95 04/11/21 13:30 92 H 16 114/72 95 04/11/21 13:27 17 04/11/21 13:20 97 H 12 114/72 93 04/11/21 13:16 104 H 20 114/72 98 04/11/21 13:10 101 H 13 114/72 100 04/11/21 13:00 91 H 13 108/70 04/11/21 12:59 88 16 - Physical Examination HEENT: Positive: PERRL Neck: Positive: trachea midline Neuro: Positive: Grossly Intact Abdomen: Positive: Soft, Active Bowel Sounds Skin: Positive: Other (Healing wounds on bilateral lower extremities) Extremities: Present: normal. Absent: edema - Labs and Meds CBC 04/11/21 04/12/21 Range/Units 12:41 06:35 WBC 4.5 4.9 (4.5-11.0) K/mm3 RBC 4.73 4.72 (3.65-5.03) M/mm3 Hgb 14.4 13.8 (11.8-15.2) gm/dl Hct 42.9 43.0 (35.5-45.6) % Plt Count 243 235 (140-440) K/mm3 Lymph # (Auto) 1.5 1.9 (1.2-5.4) K/mm3 [place] # (Auto) 0.5 0.5 (0.0-0.8) K/mm3 Eos # (Auto) 0.0 0.0 (0.0-0.4) K/mm3 Baso # (Auto) 0.0 0.1 (0.0-0.1) K/mm3 Comprehensive Metabolic Panel 04/11/21 04/12/21 Range/Units 12:41 06:35 Sodium 136 L 140 (137-145) mmol/L Potassium 4.0 4.1 (3.6-5.0) mmol/L Chloride 102.3 108.5 H (98-107) mmol/L Carbon Dioxide 24 23 (22-30) mmol/L BUN 20 19 (9-20) mg/dL Creatinine 1.0 0.9 (0.8-1.3) mg/dL Glucose 113 H 109 H (75-100) mg/dL Calcium 8.5 8.3 L (8.4-10.2) mg/dL - Imaging and Cardiology Echo: pending, report reviewed Cardiac cath: report reviewed - EKG Sinus rhythms and dysrhythmias: sinus tachycardia
--- NOTE | 2021-04-12 12:10 | Progress Note ---
Assessment and Plan Assessment and plan: Brugada syndrome Chest pain Bilateral lower extremity wounds. s/p AICD 04/11/2021. Patient will be admitted and placed on chest pain protocol. We will follow-up serial cardiac isoenzymes and EKG. Check echocardiogram and cardiology consultation pending 04/12/2021. Patient with echocardiogram which revealed EF 50 to 55%. Left ventricular diastolic function is normal. Right ventricular systolic function is normal. No pericardial effusion. Lexiscan stress test revealed no signs of ischemia. Cardiology recommends no beta-blockers due to cocaine use. TED/ARB on hold due to soft blood pressures. Cardiology awaiting device interrogation from [facility]. ID consultation for the bilateral lower extremity wounds. Patient previously with abrasions to the bilateral anterior lower ex tremity with worsening appearance. Patient previously was discharged from ER with Bactrim and Bactroban History Interval history: No new issues overnight. Hospitalist Physical - Constitutional Vitals: Temp Pulse Resp BP Pulse Ox 98.2 F 89 18 137/85 95 04/12/21 03:50 04/12/21 03:50 04/12/21 03:50 04/12/21 08:31 04/12/21 03:50 General appearance: Present: no acute distress, well-nourished - EENT Eyes: Present: PERRL, EOM intact ENT: hearing intact, clear oral mucosa, dentition normal - Neck Neck: Present: supple, normal ROM - Respiratory Respiratory effort: normal Respiratory: bilateral: CTA - Cardiovascular Rhythm: regular Heart Sounds: Present: S1 & S2. Absent: gallop, rub - Extremities Extremities: no ischemia, No edema, Full ROM - Abdominal General gastrointestinal: soft, non-tender, non-distended, normal bowel sounds - Integumentary Integumentary: Present: clear, warm, dry - Neurologic Neurologic: CNII-XII intact, moves all extremities HEART Score - HEART Score EKG: Non-specific Age: 45-65 Risk factors: 1-2 risk factors Troponin: Troponin T < 0.010 ng/mL (0.00-0.029) 04/11/21 07:54 Troponin: < normal limit - Critical Actions Critical Actions: 4-6 pts:12-16.6% risk of adverse cardiac event. Should be admitted Results - Labs CBC & Chem 7: 04/12/21 06:35 04/12/21 06:35 Labs: Laboratory Last Values WBC 4.9 K/mm3 (4.5-11.0) 04/12/21 06:35 RBC 4.72 M/mm3 (3.65-5.03) 04/12/21 06:35 Hgb 13.8 gm/dl (11.8-15.2) 04/12/21 06:35 Hct 43.0 % (35.5-45.6) 04/12/21 06:35 MCV 91 fl (84-94) 04/12/21 06:35 MCH 29 pg (28-32) 04/12/21 06:35 MCHC 32 % (32-34) 04/12/21 06:35 RDW 13.2 % (13.2-15.2) 04/12/21 06:35 Plt Count 235 K/mm3 (140-440) 04/12/21 06:35 Lymph % (Auto) 39.5 % (13.4-35.0) H 04/12/21 06:35 [place] % (Auto) 9.7 % (0.0-7.3) H 04/12/21 06:35 Eos % (Auto) 1.0 % (0.0-4.3) 04/12/21 06:35 Baso % (Auto) 1.3 % (0.0-1.8) 04/12/21 06:35 Lymph # (Auto) 1.9 K/mm3 (1.2-5.4) 04/12/21 06:35 [place] # (Auto) 0.5 K/mm3 (0.0-0.8) 04/12/21 06:35 Eos # (Auto) 0.0 K/mm3 (0.0-0.4) 04/12/21 06:35 Baso # (Auto) 0.1 K/mm3 (0.0-0.1) 04/12/21 06:35 Seg Neutrophils % 48.5 % (40.0-70.0) 04/12/21 06:35 Seg Neutrophils # 2.4 K/mm3 (1.8-7.7) 04/12/21 06:35 PT 14.2 Sec. (12.2-14.9) 04/11/21 01:54 INR 0.99 (0.87-1.13) 04/11/21 01:54 APTT 35.2 Sec. (24.2-36.6) 04/11/21 01:54 D-Dimer 582.66 ng/mlDDU (0-234) H 04/11/21 01:54 Sodium 140 mmol/L (137-145) 04/12/21 06:35 Potassium 4.1 mmol/L (3.6-5.0) 04/12/21 06:35 Chloride 108.5 mmol/L (98-107) H 04/12/21 06:35 Carbon Dioxide 23 mmol/L (22-30) 04/12/21 06:35 Anion Gap 13 mmol/L 04/12/21 06:35 BUN 19 mg/dL (9-20) 04/12/21 06:35 Creatinine 0.9 mg/dL (0.8-1.3) 04/12/21 06:35 Estimated GFR > 60 ml/min 04/12/21 06:35 BUN/Creatinine Ratio 21 % 04/12/21 06:35 Glucose 109 mg/dL (75-100) H 04/12/21 06:35 POC Glucose 100 mg/dL (70-105) 04/12/21 11:24 Calcium 8.3 mg/dL (8.4-10.2) L 04/12/21 06:35 Total Bilirubin 0.80 mg/dL (0.1-1.2) 04/11/21 01:54 Direct Bilirubin < 0.2 mg/dL (0-0.2) 04/11/21 01:54 Indirect Bilirubin 0.6 mg/dL 04/11/21 01:54 AST 22 units/L (5-40) 04/11/21 01:54 ALT 28 units/L (7-56) 04/11/21 01:54 Alkaline Phosphatase 110 units/L (35-129) 04/11/21 01:54 Troponin T < 0.010 ng/mL (0.00-0.029) 04/11/21 07:54 Total Protein 7.0 g/dL (6.3-8.2) 04/11/21 01:54 Albumin 3.9 g/dL (3.9-5) 04/11/21 01:54 Albumin/Globulin Ratio 1.3 % 04/11/21 01:54 Swan/IV: Voiding Method Toilet Active Medications - Current Medications Current Medications: Generic Name Dose Route Start Last Admin Trade Name Freq PRN Reason Stop Dose Admin Acetaminophen 650 mg 04/11/21 12:16 Acetaminophen 325 Mg Tab PO Q4H PRN Pain MILD(1-3)/Fever >100.5/MONROY Hydrocodone Bitart/Acetaminophen 2 each 04/11/21 12:16 04/11/21 22:00 Hydrocodone/Acetaminophen 5-325 Mg Tab PO 2 each Q6H PRN Administration Pain, Moderate (4-6) Enoxaparin Sodium 40 mg 04/12/21 10:00 Enoxaparin 40 Mg/0.4 Ml Inj SUB-Q QDAY KHOA Protocol Gabapentin 800 mg 04/11/21 18:00 04/12/21 06:03 Gabapentin 400 Mg Cap PO 800 mg Q8HR KHOA Administration Morphine Sulfate 2 mg 04/11/21 12:16 04/11/21 13:27 Morphine 4 Mg/1 Ml Inj IV 2 mg Q4H PRN Administration Pain , Severe (7-10) Ondansetron HCl 4 mg 04/11/21 12:16 Ondansetron 4 Mg/2 Ml Inj IV Q8H PRN Nausea And Vomiting Sodium Chloride 10 ml 04/11/21 22:00 04/11/21 22:00 Sodium Chloride 0.9% 10 Ml Flush Syringe IV 10 ml BID KHOA Administration Sodium Chloride 10 ml 04/11/21 12:16 Sodium Chloride 0.9% 10 Ml Flush Syringe IV PRN PRN LINE FLUSH Tramadol HCl 50 mg 04/11/21 12:16 Tramadol 50 Mg Tab PO Q6H PRN Pain, Moderate (4-6) Trazodone HCl 50 mg 04/11/21 22:00 04/11/21 22:00 Trazodone 50 Mg Tab PO 50 mg QHS KHOA Administration
[2021-04-12] MEDS ORDERED: PIPERACIL/TAZOBACTA 4.5/NS 100 4.5 GM/100 ML VIAL IV SCH (13:00)
[2021-04-12] MEDS ORDERED: VANCOMYCIN 1,500 MG in SODIUM CHLORIDE 0.9% 500 ML 500 ML IV ONE (13:37)
--- NOTE | 2021-04-12 13:37 | Consultation ---
History of Present Illness - Reason for Consult Consult date: 04/12/21 b/l leg wounds Requesting physician: DAVID CRONIN - History of Present Illness The patient is a 51-year-old male with Brugada syndrome, status post AICD, hypertension, was admitted to the hospital with complaints of chest pain. Stress test without any signs of cardiac ischemia. Patient was also noted to have bilateral lower extremity wounds for which infectious diseases was con sulted. He reports a fall about a month ago in his yard when he fell into a hole and scraped both his lower extremities. He was trying to nurse this at home and did not seek medical attention. No fever or chills. He smokes a few cigarettes every day. Review of Systems: General: no fevers,chills or rigors HEENT: no new visual disturbance Respiratory: No cough, sputum, hemoptysis or shortness of breath Cardiovascular: No chest pain, syncope Gastrointestinal: No nausea, vomiting or diarrhea Genitourinary: No dysuria or hematuria Musculoskeletal: No new or worsening neck pain or back pain Neurologic: No headaches, seizures Hematologic: No easy bruising or bleeding Endocrine: No night sweats or acute weight loss Skin: negative for rash, jaundice. Bilateral lower extremity wounds Psychiatric: No suicidal or homicidal ideation Past History Past Medical History: other (Brugada syndrome) Past Surgical History: No surgical history Social history: smoking, other (Cocaine use) Family history: no significant family history Medications and Allergies Allergies Allergy/AdvReac Type Severity Reaction Status Date / Time No Known Allergies Allergy Verified 12/29/14 07:16 Home Medications Medication Instructions Recorded Confirmed Last Taken Type Gabapentin [Neurontin] 800 mg PO Q8H 12/29/14 04/11/21 04/09/21 History Indomethacin 50 mg PO Q8H 12/29/14 04/11/21 04/09/21 History Omeprazole [PriLOSEC] 10 mg PO QDAY 12/29/14 04/11/21 04/09/21 History traZODone [Desyrel] 50 mg PO QHS 12/29/14 04/11/21 04/09/21 History Ketorolac [Toradol] 10 mg PO Q6H PRN #20 tablet 04/05/18 04/11/21 04/09/21 Rx Ibuprofen [Motrin 800 MG tab] 800 mg PO Q8HR PRN #30 tablet 04/08/21 04/11/21 04/09/21 Rx Mupirocin [Bactroban 2% OINT] 1 applic TP BID #2 tube 04/08/21 04/11/21 04/09/21 Rx Sulfamethoxazole/Trimethoprim 1 each PO Q12H #20 04/08/21 04/11/21 04/09/21 Rx [Bactrim DS TAB] Active Meds: Active Medications Acetaminophen (Acetaminophen 325 Mg Tab) 650 mg PO Q4H PRN PRN Reason: Pain MILD(1-3)/Fever >100.5/[place] Hydrocodone Bitart/Acetaminophen (Hydrocodone/Acetaminophen 5-325 Mg Tab) 2 each PO Q6H PRN PRN Reason: Pain, Moderate (4-6) Last Admin: 04/11/21 22:00 Dose: 2 each Enoxaparin Sodium (Enoxaparin 40 Mg/0.4 Ml Inj) 40 mg SUB-Q QDAY [facility]; Protocol Gabapentin (Gabapentin 400 Mg Cap) 800 mg PO Q8HR [facility] Last Admin: 04/12/21 06:03 Dose: 800 mg Piperacillin Sod/Tazobactam Sod (Zosyn/Ns 4.5gm/100ml) 4.5 gm in 100 mls @ 200 mls/hr IV Q8H [facility]; Protocol Morphine Sulfate (Morphine 4 Mg/1 Ml Inj) 2 mg IV Q4H PRN PRN Reason: Pain , Severe (7-10) Last Admin: 04/11/21 13:27 Dose: 2 mg Ondansetron HCl (Ondansetron 4 Mg/2 Ml Inj) 4 mg IV Q8H PRN PRN Reason: Nausea And Vomiting Sodium Chloride (Sodium Chloride 0.9% 10 Ml Flush Syringe) 10 ml IV BID [facility] Last Admin: 04/11/21 22:00 Dose: 10 ml Sodium Chloride (Sodium Chloride 0.9% 10 Ml Flush Syringe) 10 ml IV PRN PRN PRN Reason: LINE FLUSH Tramadol HCl (Tramadol 50 Mg Tab) 50 mg PO Q6H PRN PRN Reason: Pain, Moderate (4-6) Trazodone HCl (Trazodone 50 Mg Tab) 50 mg PO QHS [facility] Last Admin: 04/11/21 22:00 Dose: 50 mg Physical Examination - Physical Exam Narrative exam: Physical Exam: Constitutional: Alert, cooperative. No acute distress Head, Ears, Nose: Normocephalic, atraumatic. External ears, nose normal Eyes: Conjunctivae/corneas clear. No icterus. No ptosis. Neck: Supple, no meningeal signs Cardiovascular: S1, S2 + Respiratory: Good air entry, clear to auscultation bilaterally GI: Soft, non-tender; bowel sounds normal. No peritoneal signs Musculoskeletal: b/l knees down to the feet with extensive superficial wounds, scabs, mild tenderness +, slight erythema Skin: No rash or abscess Hem/Lymphatic: No palpable cervical or supraclavicular nodes. No lymphangitis Psych: Mood ok. Affect normal Neurological: Awake, alert, oriented. No gross abnormality - Constitutional Vitals: Vital Signs Temp Pulse Resp BP Pulse Ox 98.2 F 89 18 137/85 95 04/12/21 03:50 04/12/21 03:50 04/12/21 03:50 04/12/21 08:31 04/12/21 03:50 Temperature -Last 24 Hours Temperature 98.2 F Temperature 98.3 F Temperature 98.3 F Temperature 98.3 F Temperature 98.1 F Temperature 98.9 F Results - Labs CBC & Chem 7: 04/12/21 06:35 04/12/21 06:35 Labs: Abnormal lab results 04/12/21 04/12/21 Range/Units 06:35 06:35 Lymph % (Auto) 39.5 H (13.4-35.0) % [place] % (Auto) 9.7 H (0.0-7.3) % Chloride 108.5 H (98-107) mmol/L Glucose 109 H (75-100) mg/dL Calcium 8.3 L (8.4-10.2) mg/dL Assessment and Plan Cultures: None A/P: 51-year-old male with Brugada syndrome, status post AICD, hypertension, was admitted to the hospital with complaints of chest pain: #Bilateral lower extremity wounds: With mild superadded infection, wounds appear quite chronic, present for at least 1 month. Etiology according to the patient is trauma. Suspicion for underlying peripheral vascular disease #Tobacco, cocaine abuse #Brugada syndrome, status post AICD Recs: -IV cefepime, vancomycin ordered -Bilateral lower extremity arterial Dopplers ordered, if no significant stenosis is found, discharge on PO Keflex 500 mg QID + PO doxycycline 100 mg BID x 7 days -Please set up outpatient wound care Murphy Bearden MD, FACP, [facility] O: [phone] F: [phone]
[2021-04-12] MEDS ORDERED: CEFEPIME/NS 2 GM/100 ML 2 GM/100 ML BAG IV SCH (14:00)
[2021-04-12] MEDS ORDERED: VANCOMYCIN PHARMACY TO DOSE IV SCH (14:00)
--- NOTE | 2021-04-12 14:40 | Treadmill Report ---
DATE OF SERVICE: 04/12/2021 NUCLEAR PERFUSION SCAN REFERRING PHYSICIAN: Hospitalist service. PROTOCOL: The patient was assessed in postoperative state and given 10 mCi of technetium at rest. The patient had rest imaging. The patient underwent Lexiscan stress test per standard protocol. At peak stress, the patient was given 26 mCi of technetium. Shortly thereafter, the patient had stress imaging. Raw imaging reveals mild GI artifact, no significant motion artifact. SPECT imaging examined carefully in horizontal long axis, vertical long axis and short axis views. There was normal mitral uptake of radioisotope in all port segments. No evidence of significant fixed or reversible perfusion defect suggestive of prior infarction or ischemia. Gated wall motion reveals normal systolic thickening, calculated ejection-fraction of 62%. No TID. CONCLUSIONS: 1. Normal myocardial perfusion scan without evidence of active ischemia or prior infarction. 2. Normal left ventricular systolic performance without evidence of transient ischemic dilatation or stress-induced segmental wall motion abnormalities. TID: [id number] RECEIPT: [id number] [facility]BM/ARV
[2021-04-12] MEDS: MORPHINE 4 MG/1 ML INJ IV PRN (14:50)
--- NOTE | 2021-04-12 15:12 | Vascular Lab Report ---
DUPLEX DOPPLER LOWER EXTREMITY ARTERIAL, BILATERAL INDICATION / CLINICAL INFORMATION: peripheral vascular disease, wounds. TECHNIQUE: Arterial duplex examination of both lower extremities performed using B-mode, color flow a nd spectral Doppler assessment. FINDINGS: RIGHT: - Atherosclerotic Plaque: No significant atherosclerotic plaque. - Elevated Velocity (>200 cm/s): None. - Abnormal Waveform: None. LEFT: - Atherosclerotic Plaque: No significant atherosclerotic plaque. - Elevated Velocity (>200 cm/s): None. - Abnormal Waveform: None. ADDITIONAL FINDINGS: None. IMPRESSION: 1. No significant lower extremity peripheral artery disease. Signer Name: Guy Reed MD Signed: 04/12/2021 3:07 PM Workstation Name: [id number]
[2021-04-12] MEDS ORDERED: VANCOMYCIN 2,000 MG in SODIUM CHLORIDE 0.9% 500 ML 500 ML IV SCH (16:00)
[2021-04-12 16:33] VITALS: BP 123/77
[2021-04-13] MEDS ORDERED: VANCOMYCIN 1,500 MG in SODIUM CHLORIDE 0.9% 500 ML 500 ML IV SCH (04:00)
== END 2021-04-12 19:28 | disposition home or self-care (01) ==
LOC: ED 00:01 → 4A 12:16
PROVIDERS: ADMIT Hospitalist; ATTEND Hospitalist
DX: R07.89 Other chest pain (principal); I49.8 Other specified cardiac arrhythmias; I10 Essential (primary) hypertension; F14.10 Cocaine abuse, uncomplicated; K21.9 Gastro-esophageal reflux disease without esophagitis; S80.922A Unspecified superficial injury of left lower leg, initial encounter; S80.921A Unspecified superficial injury of right lower leg, initial encounter; F17.210 Nicotine dependence, cigarettes, uncomplicated; Z95.810 Presence of automatic (implantable) cardiac defibrillator; Z98.61 Coronary angioplasty status; Z91.19 Patient's noncompliance with other medical treatment and regimen; X58.XXXA Exposure to other specified factors, initial encounter; W19.XXXA Unspecified fall, initial encounter
CPT/HCPCS: 36415; 71046; 71275; 78452; 80048; 80076; 82962; 84484; 85025; 85379; 85610; 85730; 93005; 93017; 93306; 93925; 96365; 96366; 96367; 96372; 96375; 96376; 99285; A9502; G0378; J0692; J1650; J2270; J2785; J3370; J7040; Q9967

== ENCOUNTER 2021-04-15 17:11 | Emergency (ER) | payer MEDICARE ==
[2021-04-15 17:16] VITALS: BP 140/96
[2021-04-15] MEDS ORDERED: IBUPROFEN 400 MG TAB PO ONE (17:51)
[2021-04-15] MEDS ORDERED: ACETAMINOPHEN 325 MG TAB PO ONE (17:51)
[2021-04-15] MEDS ORDERED: PANTOPRAZOLE 40 MG TAB PO ONE (17:51)
--- NOTE | 2021-04-15 17:52 | Emergency Department Report ---
ED General Adult HPI - General Chief complaint: Chest Pain Stated complaint: My heart is racing. I am having chest wall pain. PUI?: No Time Seen by Provider: 04/15/21 17:26 Source: patient, RN notes reviewed, old records reviewed Mode of arrival: Ambulatory Limitations: No Limitations - History of Present Illness Initial comments: The patient was evaluated in the emergency department for symptoms described in the history of present illness. He/she was evaluated in the context of the global COVID-19 pandemic, which necessitated consideration that the patient might be at risk for infection with the virus that causes COVID-19. Institutional protocols and algorithms that pertain to the evaluation of patients at risk for COVID-19 are in a state of rapid change based on information released by regulatory bodies including the CDC and federal and state organizations. These policies and algorithms were followed during the patient's care in the emergency department. Please note that these policies, procedures and recommendations changed on a rapid basis. The patient is a 51-year-old gentleman. This patient was recently admitted to this hospital earlier on this week for a cardiac risk stratification. Diagnostic studies included a CTA chest which was negative for PE, multiple troponins, which were negative, and a nuclear cardiac stress test which was negative for acute findings. The patient presents to the ER today with a complaint of feeling like his heart is racing. This is intermittent for the past week. He reports that for the past week he has not consumed tobacco or cocaine or alcohol. He reports previously consuming these recreationally. His sensation of racing heart has been present intermittently for over 24 hours. He also endorses nonradiating nonexertional chest wall pain and chest pressure, present constantly for about 24 hours. Denies vomiting, diaphoresis, new/different exertional shortness of breath, hematemesis and bright red blood per rectum. He is not sure if he has taken aspirin within the past 24 hours He denies travel, surgery, immobilization, calf pain and Swelling. He endorses chronic wounds to his bilateral lower anterior shins and knees. He was recently seen by infectious disease for this during his recent hospitalization, who recommended antibiotics and supportive care. -: Gradual, hour(s), days(s) Location: chest Radiation: non-radiation Improves with: none Worsens with: none - Related Data Home Medications Medication Instructions Recorded Confirmed Last Taken Omeprazole [PriLOSEC] 10 mg PO QDAY 12/29/14 04/11/21 04/09/21 Previous Rx's Medication Instructions Recorded Last Taken Type Ketorolac [Toradol] 10 mg PO Q6H PRN #20 tablet 04/05/18 04/09/21 Rx Ibuprofen [Motrin 800 MG tab] 800 mg PO Q8HR PRN #30 tablet 04/08/21 04/09/21 Rx Mupirocin [Bactroban 2% OINT] 1 applic TP BID #2 tube 04/08/21 04/09/21 Rx Sulfamethoxazole/Trimethoprim 1 each PO Q12H #20 04/08/21 04/09/21 Rx [Bactrim DS TAB] Aspirin [Aspirin BABY CHEW TAB] 81 mg PO QDAY #30 tab.chew 04/15/21 Unknown Rx Doxycycline Hyclate 100 mg PO BID #14 cap 04/15/21 Unknown Rx cephALEXin [Keflex] 500 mg PO Q6HR #28 capsule 04/15/21 Unknown Rx Allergies Allergy/AdvReac Type Severity Reaction Status Date / Time No Known Allergies Allergy Verified 12/29/14 07:16 ED Review of Systems ROS: Stated complaint: PULSE UNSTABLE Other details as noted in HPI Constitutional: denies: fever Eyes: denies: vision change ENT: denies: epistaxis Respiratory: denies: cough Cardiovascular: chest pain Gastrointestinal: as per HPI. denies: abdominal pain, nausea, vomiting, hematemesis, melena, hematochezia Musculoskeletal: arthralgia, myalgia Skin: rash, lesions Neurological: denies: weakness Hematological/Lymphatic: denies: easy bleeding ED Past Medical Hx - Past Medical History Hx GERD: Yes Additional medical history: Brugada syndrome. MS - Surgical History Hx Internal Defibrillator: Yes (placed 01/11/15) Additional Surgical History: Cardiac cath 12/29/2014 normal coronary arteries - Social History Smoking Status: Never Smoker Substance Use Type: None - Medications Home Medications: Home Medications Medication Instructions Recorded Confirmed Last Taken Type Omeprazole [PriLOSEC] 10 mg PO QDAY 12/29/14 04/11/21 04/09/21 History Ketorolac [Toradol] 10 mg PO Q6H PRN #20 tablet 04/05/18 04/11/21 04/09/21 Rx Ibuprofen [Motrin 800 MG tab] 800 mg PO Q8HR PRN #30 tablet 04/08/21 04/11/21 04/09/21 Rx Mupirocin [Bactroban 2% OINT] 1 applic TP BID #2 tube 04/08/21 04/11/21 04/09/21 Rx Sulfamethoxazole/Trimethoprim 1 each PO Q12H #20 04/08/21 04/11/21 04/09/21 Rx [Bactrim DS TAB] Aspirin [Aspirin BABY CHEW TAB] 81 mg PO QDAY #30 tab.chew 04/15/21 Unknown Rx Doxycycline Hyclate 100 mg PO BID #14 cap 04/15/21 Unknown Rx cephALEXin [Keflex] 500 mg PO Q6HR #28 capsule 04/15/21 Unknown Rx ED Physical Exam - General Limitations: No Limitations General appearance: alert, in no apparent distress - Head Head exam: Present: atraumatic, normocephalic - Eye Eye exam: Present: normal appearance, EOMI. Absent: nystagmus - ENT ENT exam: Present: normal exam, normal orophraynx, mucous membranes moist, normal external ear exam - Neck Neck exam: Present: normal inspection, full ROM. Absent: tenderness, meningismus - Respiratory Respiratory exam: Present: normal lung sounds bilaterally. Absent: respiratory distress, wheezes, rales, rhonchi, stridor, decreased breath sounds - Cardiovascular Cardiovascular Exam: Present: regular rate, normal rhythm, normal heart sounds. Absent: bradycardia, tachycardia, irregular rhythm, systolic murmur, diastolic murmur, rubs, gallop - GI/Abdominal GI/Abdominal exam: Present: soft. Absent: distended, tenderness, guarding, rebound, rigid, pulsatile mass - Rectal Rectal exam: Present: deferred - Extremities Exam Extremities exam: Present: full ROM, other (2+ pulses noted in the bilateral upper and lower extremities. There is no palpable cord. negative Homans sign. Muscular compartments are soft. The pelvis is stable.). Absent: normal inspection (Chronic appearing wounds on the bilateral knees, and bilateral anterior tibia.), calf tenderness - Back Exam Back exam: Present: normal inspection, full ROM. Absent: tenderness, CVA tenderness (R), CVA tenderness (L), paraspinal tenderness, vertebral tenderness - Neurological Exam Neurological exam: Present: alert, oriented X3, other (No facial droop. Tongue midline. Extraocular movements intact bilaterally. Facial sensation intact to light touch in V1, V2, V3 distribution bilaterally. 5 and a 5 strength in 4 extremities. Sensation intact to light touch in 4 extremities.). Absent: motor sensory deficit - Psychiatric Psychiatric exam: Present: normal affect, normal mood - Skin Skin exam: Present: warm, dry, intact, normal color. Absent: rash ED Course Vital Signs 04/15/21 17:16 Temperature 98 F Pulse Rate 95 H Respiratory 16 Rate Blood Pressure 140/96 [Right] O2 Sat by Pulse 99 Oximetry - Reevaluation(s) Reevaluation #1: 04/15/21 18:42 Differential diagnosis, including but not limited to: GERD, gastritis, hiatal hernia, pneumonia, costochondritis, coronary artery disease, encounter for medical screening examination Assessment and plan: 51-year-old gentleman, who is afebrile, with reassuring vital signs, who is not currently tachycardic, tachypneic or hypoxic, who denies DVT/PE risk factors, who is low risk by Wells criteria for pulmonary embolism, who within the past week has had a negative CT scan of the chest for pulmonary embolism, who also had an unremarkable cardiac nuclear stress test within the past week, unchanged EKG, troponin negative x1, in the context of days of symptoms. Myocardial infarction is ruled out. Patient has chronic appearing wounds which do not appear to be decompensated. Patient appears quite comfortable at this time, and he is pleasant, calm and cooperative, and not in any acute distress. He may continue his outpatient medications, and follow-up with outpatient primary care and/or cardiology. Return precautions reviewed Equal pulses in the upper and lower extremities, unremarkable chest x-ray, unremarkable mediastinum, aortic disease is very unlikely. In addition, carmella martinez had CT scan of the chest which is negative for acute findings 04/15/21 19:07 Troponin negative. Patient in no acute distress. Recent inpatient hospitalization reviewed and appreciated. Patient medically suitable to be discharged to follow-up as an outpatient. ED Medical Decision Making - Lab Data Vital Signs 04/15/21 17:16 Temperature 98 F Pulse Rate 95 H Respiratory 16 Rate Blood Pressure 140/96 [Right] O2 Sat by Pulse 99 Oximetry - EKG Data -: EKG Interpreted by Ok EKG shows normal: sinus rhythm Rate: normal - EKG Data 04/15/21 18:41 The EKG today is interpreted at 18: 10 The EKG today is compared to prior EKG from April 12, 2021; no findings or changes have been noted. Today's EKG shows a sinus rhythm, 88 bpm. There is normal axis, normal P wave a xis, poor R wave progression, high left ventricular voltage/LVH. This is an abnormal EKG. This is not a STEMI. - Radiology Data Radiology results: report reviewed, image reviewed CHEST 2 VIEWS INDICATION / CLINICAL INFORMATION: chest pain. COMPARISON: 2 views of the chest from 04/11/2021. FINDINGS: SUPPORT DEVICES: Unchanged. HEART / MEDIASTINUM: No significant abnormality. LUNGS / PLEURA: No significant pulmonary abnormality. No significant pleural effusion. No pneumothorax. ADDITIONAL FINDINGS: No significant additional findings. IMPRESSION: 1. No acute abnormality of the chest. Signer Name: Guy Reed MD Signed: 04/15/2021 4:48 PM Workstation Name: [id number] DUPLEX DOPPLER LOWER EXTREMITY ARTERIAL, BILATERAL INDICATION / CLINICAL IN FORMATION: peripheral vascular disease, wounds. TECHNIQUE: Arterial duplex examination of both lower extremities performed using B-mode, color flow and spectral Doppler assessment. FINDINGS: RIGHT: - Atherosclerotic Plaque: No significant atherosclerotic plaque. - Elevated Velocity (>200 cm/s): None. - Abnormal Waveform: None. LEFT: - Atherosclerotic Plaque: No significant atherosclerotic plaque. - Elevated Velocity (>200 cm/s): None. - Abnormal Waveform: None. ADDITIONAL FINDINGS: None. IMPRESSION: 1. No significant lower extremity peripheral artery disease. Signer Name: Guy Reed MD Signed: 04/12/2021 2:07 PM Workstation Name: [id number] CTA CHEST WITH CONTRAST INDICATION / CLINICAL INFORMATION: CHEST PAIN WITH ELEVATED D-DIMER. TECHNIQUE: Axial CT images were obtained through the chest after injection of 100 mL Omnipaque 350 IV contrast. 3 plane MIP and/or 3D reconstructions were produced. All CT scans at this location are performed using CT dose reduction for ALARA by means of automated exposure control. COMPARISON: None available. FINDINGS: PULMONARY ARTERIES: No pulmonary emboli. THORACIC AORTA: No significant abnormality. HEART: No significant abnormality. CORONARY ARTERY CALCIFICATION: None. MEDIASTINUM / [place]YANNE: No significant abnormality. PLEURA: No pleural effusion. No pneumothorax. LUNGS: No acute air space or interstitial disease. ADDITIONAL FINDINGS: Presternal automatic defibrillator lead is present. UPPER ABDOMEN: No acute findings. SKELETAL STRUCTURES: No significant osseous abnormality. IMPRESSION: 1. No CT evidence for pulmonary embolism. 2. No acute findings. Signer Name: Keeley Jack MD Signed: 04/11/2021 3:32 AM Workstation Name: [id number] Critical care attestation.: If time is entered above; I have spent that time in minutes in the direct care of this critically ill patient, excluding procedure time. ED Disposition Clinical Impression: History of chest pain, Chronic wound of extremity, History of palpitations Disposition: HOME / SELF CARE / HOMELESS Is pt being admited?: No Does the pt Need Aspirin: No Condition: Good Additional Instructions: Please take aspirin on a daily basis. Minimize and avoid consumption of alcohol, tobacco, smoke products. Please avoid consumption of heavy and spicy foods. Please continue the outpatient antibiotics that were prescribed for the patient. Please follow-up with your primary care doctor or ghost writer within the next week for complaints of chest pain and sensation of heart racing. Please follow-up with your primary care doctor or outpatient wound center for chronic anterior lower extremity wounds within the next 2 weeks. Please return to the emergency room right away with new pain, worsened pain, migration of pain, projectile vomiting, change in mental status, confusion, inability tolerate liquid feeds, new, worsened or different symptoms not present on the initial emergency room evaluation Patient may take [id number] Tylenol and/or [id number] Protonix or Pepcid as needed for chest pain. Patient may also try [id number] ibuprofen, 400 mg by mouth, with food, every 6 hours as needed for physical pain Prescriptions: Aspirin [Aspirin BABY CHEW TAB] 81 mg PO QDAY #30 tab.chew Doxycycline Hyclate 100 mg PO BID #14 cap cephALEXin [Keflex] 500 mg PO Q6HR #28 capsule Referrals: [facility] [Provider Group] - 3-5 Days [facility] [Outside] - 3-5 Days [facility] - 3-5 Days
--- NOTE | 2021-04-15 17:53 | XRay Report ---
CHEST 2 VIEWS INDICATION / CLINICAL INFORMATION: chest pain. COMPARISON: 2 views of the chest from 04/11/2021. FINDINGS: SUPPORT DEVICES: Unchanged. HEART / MEDIASTINUM: No significant abnormality. LUNGS / PLEURA: No significant pulmonary abnormality. No significant pleural effusion. No pneumothora x. ADDITIONAL FINDINGS: No significant additional findings. IMPRESSION: 1. No acute abnormality of the chest. Signer Name: Guy Reed MD Signed: 04/15/2021 5:48 PM Workstation Name: [id number]
--- NOTE | 2021-04-19 13:33 | Electrocardiograph Report ---
[facility] Test Date: 2021-04-15 Test Time: 18:06:41 Pat Name: CARISA GOMEZ Department: Room: Gender: M Branch Office Administrator: RICKIE : 1970 Requested By: KEEGAN BRANCH Order Number: [id number] Reading MD: Shivam Hammer Measurements Intervals [place] Rate: 88 P: 81 [place]: 177 QRS: 53 QRSD: 105 T: 73 QT: 365 QTc: 441 Interpretive Statements Sinus rhythm Anteroseptal infarct, age indeterminate Compared to ECG 04/12/2021 10:17:42 No significant change Electronically Signed On 04-19-2021 13:32:49 EST by Shivam Hammer
== END 2021-04-15 20:00 | disposition home or self-care (01) ==
LOC: ED 17:11
DX: S81.802A Unspecified open wound, left lower leg, initial encounter (principal); S81.801A Unspecified open wound, right lower leg, initial encounter; R00.2 Palpitations; R07.9 Chest pain, unspecified; K21.9 Gastro-esophageal reflux disease without esophagitis; Z98.890 Other specified postprocedural states; X58.XXXA Exposure to other specified factors, initial encounter; Y93.89 Activity, other specified; Y92.89 Other specified places as the place of occurrence of the external cause; Y99.8 Other external cause status
CPT/HCPCS: 36415; 71046; 84484; 93005; 93010; 99284